=== PATIENT | female | born 1960 | race Caucasian/White ===

== ENCOUNTER 2016-04-28 11:22 | Inpatient (IN) | payer MEDICARE ==
[~2016-04-28] VITALS: Ht 157.5 cm; Wt 98.9 kg
[~2016-04-28 11:22] MED LIST: AMIT50TA PO; AMLO10TA4 PO; AMLO5TAB2 PO; ASCO10004 PO; ASPI-650 PO; ASPI325T4 PO; ATEN50TA41 PO; CALCIUM PO; CITA20TA9 PO; CITA40TA5 PO; CYCL5TAB PO; DIAZ5TAB PO; FURO-93 PO; FURO40TA6 PO; GABA300C10 PO; HYDR-3307 PO; LEVO125T PO; LEVO150T PO; LEVO150T5 PO; LIOT5TAB3 PO; LIOT5TAB6 PO; LISI1TAB7 PO; MELO-184 PO; MELO15TA6 PO; MORP15TA PO; MORP30TA81 PO; MULT-6 PO; OXYC-302 PO; OXYC1TAB7 PO; OXYC30TA PO; PANT40TA3 PO; PANT40TA5 PO; POTA20TA6 PO; POTA99TA8 PO; SPIR25TA3 PO; SULF1TAB24 PO; TRAM50TA2 PO; TRAMADOL PO; VITA1TAB3 PO; glaucoma eye drops EACHEYE
[2016-04-28] MEDS ORDERED: FOLI-17 PO (11:40)
[2016-04-28] MEDS ORDERED: HYDROmorphone 1 MG/ML, 1ML ONE ×2 (11:42→13:21)
[2016-04-28] MEDS ORDERED: HYDROmorphone 1 MG/ML, 1ML IV ONE (12:00)
[2016-04-28] MEDS ORDERED: HYDROmorphone 1 MG/ML, 1ML IVPush PRN (12:30)
[2016-04-28] MEDS ORDERED: ONDANSETRON 2MG/ML, 2ML IVPush ONE (12:30)
[2016-04-28] MEDS ORDERED: SODIUM CHLORIDE FLUSH 10ML SYR IVF ONE (12:30)
[2016-04-28] MEDS ORDERED: SODIUM CHLORIDE 0.9% 1,000ML IVBOLUS ONE (12:30)
[2016-04-28 12:39] LABS: HEMOGLOBIN 12.9 g/dL (11.7-16.4)
[2016-04-28 12:50] LABS: BLOOD UREA NITROGEN 5 mg/dL (7-18)
[2016-04-28 13:11] LABS: ANISOCYTOSIS 1+; OVALOCYTES 1+
[2016-04-28] MEDS ORDERED: POLYETHYLENE GLYCOL 17 GM PACKET PO PRN (15:00)
[2016-04-28] MEDS ORDERED: ENALAPRILAT 1.25 MG/ML, 2ML IVPush PRN (15:00)
[2016-04-28] MEDS ORDERED: LORazepam 2 MG/ML, 1ML IVPush PRN (15:00)
[2016-04-28] MEDS ORDERED: ACETAMINOPHEN 325 MG TABLET PO PRN (15:00)
[2016-04-28] MEDS ORDERED: DOCUSATE 100 MG CAPSULE PO PRN (15:00)
[2016-04-28 15:33] VITALS: BP 135/74
[2016-04-28] MEDS: MORPHINE SULFATE 4 MG/ML, 1ML IVPush PRN ×2 (16:05→20:21)
[2016-04-28 17:28] VITALS: BP 135/74
[2016-04-28] MEDS: OXYcodone IR 5MG TABLET PO PRN ×2 (17:39→23:38)
[2016-04-28 19:09] VITALS: BP 134/79
[2016-04-28] MEDS: NICOTINE 14MG/24 HR PATCH.TD24 TD SCH (20:21)
[2016-04-28] MEDS: AMITRIPTYLINE 25 MG TABLET PO SCH (23:38)
[2016-04-29 01:42] VITALS: BP 129/80
[2016-04-29] MEDS: OXYcodone IR 5MG TABLET PO PRN ×3 (03:46→21:29)
[2016-04-29 07:43] VITALS: BP 167/93
[2016-04-29] MEDS: AMLODIPINE 5 MG TABLET PO SCH (10:03)
[2016-04-29] MEDS: PANTOPROZOLE 40MG TABLET PO SCH (10:03)
[2016-04-29] MEDS: LEVOTHYROXINE 150 MCG TABLET PO SCH (10:04)
[2016-04-29] MEDS: SPIRONOLACTONE 25 MG TABLET PO SCH (10:04)
[2016-04-29] MEDS: MULTIVITS,STRESS FORMULA 1 TABLET PO SCH (10:04)
[2016-04-29] MEDS: FOLIC ACID 1 MG TABLET PO SCH (10:05)
[2016-04-29] MEDS: FUROSEMIDE 40 MG TABLET PO SCH (10:05)
[2016-04-29] MEDS: CITALOPRAM 20 MG TABLET PO SCH (10:05)
[2016-04-29] MEDS: LIOTHYRONINE 5 MCG TABLET PO SCH (10:05)
[2016-04-29] MEDS: KETOROLAC 30 MG/1 ML IVPush SCH ×3 (10:06→21:22)
[2016-04-29 13:14] VITALS: BP 126/83
[2016-04-29] MEDS ORDERED: ENOXAPARIN 40 MG/0.4 ML SQ SCH (16:30)
[2016-04-29 19:03] VITALS: BP 124/74
[2016-04-29] MEDS: AMITRIPTYLINE 25 MG TABLET PO SCH (21:22)
[2016-04-29] MEDS: NICOTINE 14MG/24 HR PATCH.TD24 TD SCH (21:23)
[2016-04-30] MEDS: KETOROLAC 30 MG/1 ML IVPush SCH ×3 (03:49→16:43)
[2016-04-30 07:18] VITALS: BP 123/79
[2016-04-30] MEDS: LIOTHYRONINE 5 MCG TABLET PO SCH (09:23)
[2016-04-30] MEDS: CITALOPRAM 20 MG TABLET PO SCH (09:23)
[2016-04-30] MEDS: SPIRONOLACTONE 25 MG TABLET PO SCH (09:23)
[2016-04-30] MEDS: MULTIVITS,STRESS FORMULA 1 TABLET PO SCH (09:24)
[2016-04-30] MEDS: FOLIC ACID 1 MG TABLET PO SCH (09:24)
[2016-04-30] MEDS: FUROSEMIDE 40 MG TABLET PO SCH (09:24)
[2016-04-30] MEDS: LEVOTHYROXINE 150 MCG TABLET PO SCH (09:24)
[2016-04-30] MEDS: PANTOPROZOLE 40MG TABLET PO SCH (09:24)
[2016-04-30] MEDS: AMLODIPINE 5 MG TABLET PO SCH (09:24)
[2016-04-30] MEDS: OXYcodone IR 5MG TABLET PO PRN (12:56)
[2016-04-30 13:13] VITALS: BP 105/67
== END 2016-04-30 17:10 | disposition home or self-care (01) | DRG 555 ==
LOC: ED 13:08 → EDIP 14:01 → 3NE 15:20
PROVIDERS: ADMIT Internal Medicine; ATTEND Internal Medicine
DX: M25.552 Pain in left hip (principal); E43 Unspecified severe protein-calorie malnutrition; M25.562 Pain in left knee; W18.30XA Fall on same level, unspecified, initial encounter; I10 Essential (primary) hypertension; G89.29 Other chronic pain; M19.90 Unspecified osteoarthritis, unspecified site; Z96.643 Presence of artificial hip joint, bilateral; B18.2 Chronic viral hepatitis C; E03.9 Hypothyroidism, unspecified; G89.11 Acute pain due to trauma; Z82.49 Family history of ischemic heart disease and other diseases of the circulatory system; Z83.3 Family history of diabetes mellitus; Z88.0 Allergy status to penicillin; Z72.0 Tobacco use; Z88.8 Allergy status to other drugs, medicaments and biological substances; Y93.89 Activity, other specified; Y92.89 Other specified places as the place of occurrence of the external cause; Z79.899 Other long term (current) drug therapy
CPT/HCPCS: 36415; 71010; 80048; 82040; 84443; 85025; 96361; 96374; 96376; J1170; J1650; J1885; J7030

== ENCOUNTER → 2016-07-11 | Outpatient (CLI) | payer MEDICARE ==
[~2016-07-11] MED LIST changes: +FOLI-17 PO
[2016-07-13 20:34] LABS: ASPARTATE AMINO TRANSFERASE 39 U/L (15-37); BLOOD UREA NITROGEN 6 mg/dL (7-18)
== END | disposition home or self-care (01) ==
LOC: STAR 12:00
PROVIDERS: ATTEND Orthopaedic Surgery
DX: Z01.810 Encounter for preprocedural cardiovascular examination (principal); Z01.812 Encounter for preprocedural laboratory examination; M17.12 Unilateral primary osteoarthritis, left knee
CPT/HCPCS: 36415; 80053; 81003; 85025; 87081; 93005

== ENCOUNTER 2016-08-01 06:12 | Inpatient (IN) | payer MEDICARE ==
[~2016-08-01] VITALS: Ht 157.5 cm; Wt 94.0 kg
[2016-08-01] MEDS ORDERED: ROPIvacaine/PF 0.5%, 30 ML ONE (06:24)
[2016-08-01] MEDS ORDERED: EPINEPHRINE 1 MG/ML, 1ML ONE ×2 (06:32→08:35)
[2016-08-01] MEDS ORDERED: TRANEXAMIC ACID 100 MG/ML, 10ML ONE ×2 (06:32→06:39)
[2016-08-01] MEDS ORDERED: KETOROLAC 60 MG/2 ML ONE ×2 (06:32→08:35)
[2016-08-01] MEDS ORDERED: ROPIvacaine/PF 0.2%, 20 ML ONE ×2 (06:32→08:35)
[2016-08-01] MEDS ORDERED: LIDOCAINE 1%, 2ML SQ PRN (07:00)
[2016-08-01] MEDS ORDERED: LACTATED RINGERS 1,000 ML IV SCH (07:00)
[2016-08-01 07:02] VITALS: BP 118/78
[2016-08-01] MEDS ORDERED: FENTANYL PF 250 MCG/5ML ONE (08:10)
[2016-08-01] MEDS ORDERED: MIDAZOLAM 1 MG/ML, 2ML ONE (08:10)
[2016-08-01] MEDS ORDERED: SODIUM CHLORIDE 0.9% 50 ML ONE (08:35)
[2016-08-01] MEDS ORDERED: VANCOMYCIN 1,000 MG ONE (08:35)
[2016-08-01] MEDS ORDERED: PROPOFOL 10 MG/ML, 20ML ONE (09:03)
[2016-08-01] MEDS ORDERED: CEFAZOLIN 1,000 MG ONE (09:03)
[2016-08-01] MEDS ORDERED: ONDANSETRON 2MG/ML, 2ML ONE (09:03)
[2016-08-01] MEDS ORDERED: DEXAMETHASONE 4 MG/ML, 1ML ONE (09:03)
[2016-08-01] MEDS ORDERED: HYDROmorphone 2 MG/ML, 1ML ONE ×2 (09:59→11:29)
[2016-08-01] MEDS ORDERED: ONDANSETRON 2MG/ML, 2ML IVPush PRN (10:00)
[2016-08-01] MEDS ORDERED: METOPROLOL 1 MG/ML, 5ML IV PRN (10:00)
[2016-08-01] MEDS ORDERED: PROMETHAZINE 25 MG/ML, 1ML IV PRN (10:00)
[2016-08-01] MEDS ORDERED: EPHEDRINE 50 MG/ML, 1ML IVPush PRN (10:00)
[2016-08-01] MEDS ORDERED: ALBUTEROL SULFATE 2.5 MG/3 ML NPPB PRN (10:00)
[2016-08-01] MEDS ORDERED: ACETAMINOPHEN 325 MG TABLET PO PRN (10:00)
[2016-08-01] MEDS ORDERED: ALBUTEROL/IPRATROPIUM 2.5MG/0.5MG, 3 ML NPPB PRN (10:00)
[2016-08-01] MEDS ORDERED: LABETALOL 5MG/ML, 20ML IV PRN (10:00)
[2016-08-01] MEDS ORDERED: OXYcodone 5 MG/5 ML ORAL.SOL UDC PO PRN (10:00)
[2016-08-01] MEDS ORDERED: MIDAZOLAM 1 MG/ML, 2ML IV PRN (10:00)
[2016-08-01] MEDS ORDERED: hydrALAzine 20 MG/ML, 1ML IV PRN (10:00)
[2016-08-01] MEDS ORDERED: SENNA/DOCUSATE TABLET PO PRN (11:00)
[2016-08-01] MEDS ORDERED: HYDROmorphone 1 MG/ML, 1ML IV PRN (11:00)
[2016-08-01] MEDS ORDERED: ONDANSETRON 4 MG TABLET PO PRN (11:00)
[2016-08-01] MEDS ORDERED: PROMETHAZINE 25 MG/ML, 1ML IM PRN (11:00)
[2016-08-01] MEDS ORDERED: OXYcodone IR 5MG TABLET PO PRN (11:00)
[2016-08-01] MEDS ORDERED: MAGNESIUM HYDROXIDE 8%, 30ML UDC PO PRN (11:00)
[2016-08-01] MEDS ORDERED: ONDANSETRON 2MG/ML, 2ML IV PRN (11:00)
[2016-08-01] MEDS ORDERED: ZOLPIDEM 5MG TABLET PO PRN (11:00)
[2016-08-01] MEDS ORDERED: DIAZEPAM 5 MG TABLET PO PRN (11:00)
[2016-08-01] MEDS: ACETAMINOPHEN 650 MG/20.3 ML UDC PO SCH ×3 (11:00→20:26)
[2016-08-01] MEDS ORDERED: BISACODYL 10 MG SUPP PR PRN (11:00)
[2016-08-01] MEDS: OXYcodone IR 5MG TABLET PO SCH ×3 (11:00→20:26)
[2016-08-01] MEDS ORDERED: ALUMINUM/MAG/SIMETHICONE 30 ML UDC PO PRN (11:00)
[2016-08-01] MEDS ORDERED: PROMETHAZINE 12.5 MG SUPP PR PRN (11:00)
[2016-08-01] MEDS ORDERED: DIPHENHYDRAMINE 50 MG CAPSULE PO PRN (11:00)
[2016-08-01] MEDS ORDERED: SCOPOLAMINE PATCH, 1.5MG PATCH.TD72 TD SCH (11:00)
[2016-08-01] MEDS ORDERED: OXYcodone 5 MG/5 ML ORAL.SOL UDC ONE (11:09)
[2016-08-01] MEDS ORDERED: FENTANYL PF 100 MCG/2ML ONE (11:09)
[2016-08-01] MEDS: FENTANYL PF 100 MCG/2ML IV PRN ×2 (11:11→11:21)
[2016-08-01] MEDS ORDERED: TRANEXAMIC ACID 1,000 MG in SODIUM CHLORIDE 0.9% 100 ML IVPB ONE (11:15)
[2016-08-01] MEDS: TAMSULOSIN 0.4 MG CAP.ER.24H PO SCH (11:20)
[2016-08-01] MEDS: HYDROmorphone 1 MG/ML, 1ML IV PRN ×3 (11:42→12:12)
[2016-08-01 13:00] VITALS: BP 124/77
[2016-08-01] MEDS: D5%-0.45% NACL 1,000 ML IV SCH ×2 (13:56→18:39)
[2016-08-01] MEDS: CEFAZOLIN PMX 2GM/50ML 50 ML IVPB SCH (16:05)
[2016-08-01] MEDS: ASPIRIN 81 MG TABLET EC PO SCH (17:38)
[2016-08-01 19:01] VITALS: BP 155/84
[2016-08-01] MEDS: PREGABALIN 75 MG CAPSULE PO SCH (20:26)
[2016-08-01] MEDS: AMITRIPTYLINE 25 MG TABLET PO SCH (20:26)
[2016-08-01] MEDS: DOCUSATE 100 MG CAPSULE PO SCH (20:26)
[2016-08-01 23:35] VITALS: BP 130/75
[2016-08-02] MEDS: OXYcodone IR 5MG TABLET PO SCH ×6 (00:25→21:18)
[2016-08-02] MEDS: ACETAMINOPHEN 650 MG/20.3 ML UDC PO SCH ×6 (00:25→21:18)
[2016-08-02] MEDS: CEFAZOLIN PMX 2GM/50ML 50 ML IVPB SCH (00:27)
[2016-08-02] MEDS: D5%-0.45% NACL 1,000 ML IV SCH ×3 (02:54→18:22)
[2016-08-02 03:24] VITALS: BP 105/68
[2016-08-02] MEDS ORDERED: DEXAMETHASONE 4 MG/ML, 1ML IVPush SCH (06:00)
[2016-08-02] MEDS: LEVOTHYROXINE 150 MCG TABLET PO SCH (06:10)
[2016-08-02] MEDS: ASPIRIN 81 MG TABLET EC PO SCH ×2 (06:11→17:18)
[2016-08-02 07:19] VITALS: BP 111/74
[2016-08-02] MEDS: SPIRONOLACTONE 25 MG TABLET PO SCH (08:18)
[2016-08-02] MEDS: PREGABALIN 75 MG CAPSULE PO SCH ×2 (08:18→20:52)
[2016-08-02] MEDS: LIOTHYRONINE 5 MCG TABLET PO SCH (08:18)
[2016-08-02] MEDS: MULTIVITAMINS/MINERALS TABLET PO SCH (08:18)
[2016-08-02] MEDS: PANTOPROZOLE 40MG TABLET PO SCH (08:18)
[2016-08-02] MEDS: DOCUSATE 100 MG CAPSULE PO SCH ×2 (08:18→20:52)
[2016-08-02] MEDS: CITALOPRAM 20 MG TABLET PO SCH (08:19)
[2016-08-02] MEDS: TAMSULOSIN 0.4 MG CAP.ER.24H PO SCH (08:19)
[2016-08-02] MEDS: AMLODIPINE 5 MG TABLET PO SCH (08:19)
[2016-08-02] MEDS: KETOROLAC 30 MG/1 ML IV SCH ×2 (11:51→18:24)
[2016-08-02 12:46] VITALS: BP 125/81
[2016-08-02 18:51] VITALS: BP 118/73
[2016-08-02] MEDS: AMITRIPTYLINE 25 MG TABLET PO SCH (20:52)
[2016-08-03] MEDS: ACETAMINOPHEN 650 MG/20.3 ML UDC PO SCH ×3 (01:17→10:03)
[2016-08-03] MEDS: OXYcodone IR 5MG TABLET PO SCH ×3 (01:17→10:03)
[2016-08-03 01:28] VITALS: BP 118/71
[2016-08-03] MEDS: D5%-0.45% NACL 1,000 ML IV SCH (02:54)
[2016-08-03] MEDS: KETOROLAC 30 MG/1 ML IV SCH (03:06)
[2016-08-03] MEDS: ASPIRIN 81 MG TABLET EC PO SCH (05:38)
[2016-08-03] MEDS: LEVOTHYROXINE 150 MCG TABLET PO SCH (05:38)
[2016-08-03] MEDS: PANTOPROZOLE 40MG TABLET PO SCH (07:50)
[2016-08-03] MEDS: AMLODIPINE 5 MG TABLET PO SCH (07:50)
[2016-08-03] MEDS: MULTIVITAMINS/MINERALS TABLET PO SCH (07:50)
[2016-08-03] MEDS: DOCUSATE 100 MG CAPSULE PO SCH (07:50)
[2016-08-03] MEDS: SPIRONOLACTONE 25 MG TABLET PO SCH (07:51)
[2016-08-03] MEDS: PREGABALIN 75 MG CAPSULE PO SCH (07:51)
[2016-08-03] MEDS: CITALOPRAM 20 MG TABLET PO SCH (07:51)
[2016-08-03] MEDS: TAMSULOSIN 0.4 MG CAP.ER.24H PO SCH (07:51)
[2016-08-03] MEDS: LIOTHYRONINE 5 MCG TABLET PO SCH (07:52)
[2016-08-03 09:22] VITALS: BP 109/71
[2016-08-03 10:40] VITALS: BP 101/66
[2016-08-03] MEDS ORDERED: OXYC5CAP4 PO (10:57)
== END 2016-08-03 11:16 | disposition home or self-care (01) | DRG 470 ==
LOC: ORIP 06:12 → 4NOR 12:54 → DCLOUNGE 08-03 10:54
PROVIDERS: ADMIT Orthopaedic Surgery; ATTEND Orthopaedic Surgery
PROC: 0SRD0J9 Replacement of Left Knee Joint with Synthetic Substitute, Cemented, Open Approach (ICD-10-PCS; principal; 2016-08-01 09:15)
DX: M17.12 Unilateral primary osteoarthritis, left knee (principal); K21.9 Gastro-esophageal reflux disease without esophagitis; I10 Essential (primary) hypertension; E03.9 Hypothyroidism, unspecified; F32.9 Major depressive disorder, single episode, unspecified; B19.20 Unspecified viral hepatitis C without hepatic coma; M32.9 Systemic lupus erythematosus, unspecified; E05.00 Thyrotoxicosis with diffuse goiter without thyrotoxic crisis or storm; F17.200 Nicotine dependence, unspecified, uncomplicated; Z88.0 Allergy status to penicillin; Z88.1 Allergy status to other antibiotic agents; Z88.8 Allergy status to other drugs, medicaments and biological substances; Z87.11 Personal history of peptic ulcer disease; Z79.899 Other long term (current) drug therapy
CPT/HCPCS: 36415; 85014; 85018; C1713; J0171; J0690; J1100; J1170; J1885; J2250; J2405; J2704; J2795; J3010; J3370; C1776; J7120

== ENCOUNTER 2018-02-09 01:24 | Emergency (ER) | payer MEDICARE ==
[~2018-02-09] VITALS: Ht 152.4 cm; Wt 67.0 kg
[~2018-02-09 01:24] MED LIST changes: +AMLO-150 PO; -AMLO5TAB2 PO; +ASPI325T17 PO; -ASPI325T4 PO; +LIOT5TAB10 PO; -LIOT5TAB6 PO; -MELO-184 PO; +MELO15TA24 PO; +OXYC5CAP2 PO; -SPIR25TA3 PO; +SPIR25TA5 PO
--- NOTE | 2018-02-09 01:36 | NUR ---
Provider to bedside for pt eval.
--- NOTE | 2018-02-09 01:42 | NUR ---
Pt to have imaging.
[2018-02-09] MEDS ORDERED: MORPHINE SULFATE 4 MG/ML, 1ML ONE (01:56)
--- NOTE | 2018-02-09 01:57 | NUR ---
Pt to imaging before pain med could be given.
[2018-02-09] MEDS ORDERED: MORPHINE SULFATE 4 MG/ML, 1ML IVPush PRN (02:00)
--- NOTE | 2018-02-09 02:20 | NUR ---
MD to bedside for pt eval complete. Pt medicated per orders, morphine 4mg, see emar. pt resting comfortably, VSS. pt VS being monitored. warm blanket provided to pt per pt request. call light in reach.
--- NOTE | 2018-02-09 03:05 | NUR ---
Pt resting in bed, on phone. VSS. pt to d/c.
[2018-02-09 03:36] VITALS: BP 100/49
--- NOTE | 2018-02-09 03:56 | NUR ---
Anival wrap applied to L knee, circulation check positive, pt educated about adjustments needed per comfort and circulation. Pt able to stand and get her pants on and stand and walk to get into wheel chair independently without diffiuclty. wheelchair provided to pt per pt request r/t pain to L knee. pt states she uses a cane and a walker at home for ambulation, pt states she will be able to use these tools as she normally does at home. pt reports knee painful, pt instructed about elevation and ice for pain control and healing support. pt verbalized understanding of instructions. pt upset she will not have any pain managment meds to take home. pt educated about the importance of RICE.
== END 2018-02-09 04:06 | disposition home or self-care (01) ==
LOC: ED 02:14
DX: S80.02XA Contusion of left knee, initial encounter (principal); S06.320A Contusion and laceration of left cerebrum without loss of consciousness, initial encounter; I10 Essential (primary) hypertension; R51 Headache; W01.0XXA Fall on same level from slipping, tripping and stumbling without subsequent striking against object, initial encounter; Y93.89 Activity, other specified; Y92.009 Unspecified place in unspecified non-institutional (private) residence as the place of occurrence of the external cause; Y99.8 Other external cause status
CPT/HCPCS: 70450; 96374

== ENCOUNTER → 2018-02-28 | Outpatient (CLI) | payer MEDICARE | END | disposition home or self-care (01) | LOC: PETCFH 09:33 | PROVIDERS: ATTEND Internal Medicine Gastroenterology | DX: K83.5 Biliary cyst (principal) | CPT/HCPCS: 78227; A9537 ==